=== PATIENT | male | born 1940 | race Caucasian/White ===

== ENCOUNTER 2023-06-28 11:15 | Inpatient (IN) | payer OTHER ==
[~2023-06-28] VITALS: Ht 175.3 cm; Wt 95.3 kg
[2023-06-28 14:58] LABS: URINE APPEARANCE Clear; URINE BILIRRUBIN Negative (NEGATIVE); URINE BLOOD Negative; URINE COLOR Yellow; URINE GLUCOSE Negative (NEGATIVE); URINE LEUKOCYTE Negative; URINE NITRATE Negative; URINE PROTEIN Negative (NEGATIVE); URINE UROBILINOGEN 0.2 E.U./dl
[2023-06-28 15:02] LABS: URINE BACTERIA 13.8 uL (0.0-1933); URINE RBC 2.1 uL (0.0-20.8); URINE WBC 2.1 uL (0.0-23.2)
[2023-06-28 15:06] LABS: URINE EPITHELIAL CELLS 1.3 uL (0.0-38.8)
[2023-06-28 15:24] LABS: PARTIAL THROMBOPLASTIN TIME 30.6 SECONDS (22.0-34.0); PROTHROMBIN TIME 10.5 SECONDS (9.0-11.5)
[2023-06-28 15:27] LABS: ALBUMIN 3.3 gm/dL (3.4-5.0); BILIRUBIN TOTAL 0.33 mg/dL (0.3-1.2); CALCIUM 9.2 mg/dL (8.5-10.1); CREATININE SERUM 1.66 mg/dL (0.70-1.30); GFR 39.66; GLOBULINA 4.4 G/DL (2.4-3.5); POTASSIUM 4.57 mEq/L (3.5-5.1); TOTAL PROTEIN 7.7 gm/dL (6.4-8.2)
[2023-06-28 15:32] LABS: HEMATOCRIT 33.9 % (39.0-48.0); HEMOGLOBIN 10.8 g/dL (13-16.00); MEAN CELL VOLUME 84.6 fL (80.0-100.00); MEAN CORPUSCULAR HGB CONC 31.9 g/dl (32.0-36.0); PLATELET COUNT 374 K/uL (150-450); RED BLOOD COUNT 4.01 M/uL (4.00-6.00)
[2023-06-28 15:37] LABS: RED CELL DISTRIBUTION WIDTH 20.7 % (11.5-14.5)
[2023-06-29] MEDS ORDERED: ZOCOR20 MG PO (08:05)
[2023-06-29] MEDS ORDERED: LOSARTAN-HCTZ1 EACH PO (08:05)
[2023-06-29] MEDS ORDERED: TAMS0.4C PO (08:05)
[2023-06-29] MEDS ORDERED: FERROUS FUMARA324 MG PO (08:06)
[2023-07-03 16:34] LABS: HEMOGLOBIN 10.2 g/dL (13-16.00); MEAN CELL VOLUME 83.6 fL (80.0-100.00); MEAN CORPUSCULAR HEMOGLOBIN 28.3 pg (27.00-32.0); MEAN CORPUSCULAR HGB CONC 33.9 g/dl (32.0-36.0); PLATELET COUNT 244 K/uL (150-450); RED BLOOD COUNT 3.59 M/uL (4.00-6.00); RED CELL DISTRIBUTION WIDTH 19.8 % (11.5-14.5)
[2023-07-04 06:58] LABS: HEMOGLOBIN 10.6 g/dL (13-16.00); MEAN CORPUSCULAR HEMOGLOBIN 27.2 pg (27.00-32.0); PLATELET COUNT 266 K/uL (150-450); RED BLOOD COUNT 3.88 M/uL (4.00-6.00); RED CELL DISTRIBUTION WIDTH 19.2 % (11.5-14.5)
[2023-07-04 07:13] LABS: ALBUMIN 2.9 gm/dL (3.4-5.0); CALCIUM 8.6 mg/dL (8.5-10.1); CREATININE SERUM 1.53 mg/dL (0.70-1.30); GFR 43.58; PHOSPHOROUS 3.7 mg/dL (2.5-4.9); POTASSIUM 4.63 mEq/L (3.5-5.1)
[2023-07-05 19:23] LABS: HEMATOCRIT 32.7 % (39.0-48.0); HEMOGLOBIN 10.7 g/dL (13-16.00); MEAN CELL VOLUME 84.5 fL (80.0-100.00); MEAN CORPUSCULAR HEMOGLOBIN 27.7 pg (27.00-32.0); MEAN CORPUSCULAR HGB CONC 32.8 g/dl (32.0-36.0); PLATELET COUNT 258 K/uL (150-450); RED BLOOD COUNT 3.88 M/uL (4.00-6.00); RED CELL DISTRIBUTION WIDTH 19.5 % (11.5-14.5)
[2023-07-05 19:33] LABS: ABG PH 7.406 (7.35-7.45); ABG PO2 65.6 mmHg (80-100); ABG pCO2 40.3 mmHg (35-45); SaO2 92.7 %
[2023-07-05 19:34] LABS: BASE EXCESS 0.1 mmol/l; BICARBONATE 24.8 mmol/l (23-25); o2 32 %
[2023-07-05 19:35] LABS: allen test SATISFACTORY; puncture site RADIAL RIGHT
[2023-07-05 19:48] LABS: CALCIUM 9.1 mg/dL (8.5-10.1); CREATININE SERUM 2.38 mg/dL (0.70-1.30); GFR 26.17; POTASSIUM 4.6 mEq/L (3.5-5.1)
[2023-07-06 08:23] LABS: CALCIUM 8.7 mg/dL (8.5-10.1); CREATININE SERUM 1.88 mg/dL (0.70-1.30); GFR 34.36; POTASSIUM 4.45 mEq/L (3.5-5.1)
[2023-07-07 08:08] LABS: CALCIUM 8.3 mg/dL (8.5-10.1); CREATININE SERUM 1.46 mg/dL (0.70-1.30); MAGNESIUM 1.9 mg/dL (1.8-2.4); POTASSIUM 3.78 mEq/L (3.5-5.1)
[2023-07-07 09:31] LABS: HEMATOCRIT 27.6 % (39.0-48.0); HEMOGLOBIN 9.3 g/dL (13-16.00); MEAN CELL VOLUME 84.1 fL (80.0-100.00); MEAN CORPUSCULAR HEMOGLOBIN 28.2 pg (27.00-32.0); MEAN CORPUSCULAR HGB CONC 33.6 g/dl (32.0-36.0); PLATELET COUNT 287 K/uL (150-450); RED BLOOD COUNT 3.28 M/uL (4.00-6.00); RED CELL DISTRIBUTION WIDTH 18.4 % (11.5-14.5)
[2023-07-07 17:02] LABS: HEMOGLOBIN 9.2 g/dL (13-16.00); RED BLOOD COUNT 3.27 M/uL (4.00-6.00)
[2023-07-08 00:32] LABS: HEMATOCRIT 27.7 % (39.0-48.0); HEMOGLOBIN 9.1 g/dL (13-16.00); MEAN CELL VOLUME 84.3 fL (80.0-100.00); MEAN CORPUSCULAR HEMOGLOBIN 27.7 pg (27.00-32.0); MEAN CORPUSCULAR HGB CONC 32.9 g/dl (32.0-36.0); PLATELET COUNT 218 K/uL (150-450); RED BLOOD COUNT 3.28 M/uL (4.00-6.00); RED CELL DISTRIBUTION WIDTH 19.1 % (11.5-14.5)
[2023-07-08 08:00] LABS: ALBUMIN 2.1 gm/dL (3.4-5.0); BILIRUBIN TOTAL 0.47 mg/dL (0.3-1.2); CALCIUM 8.3 mg/dL (8.5-10.1); CREATININE SERUM 1.3 mg/dL (0.70-1.30); GFR 52.59; GLOBULINA 3.7 G/DL (2.4-3.5); POTASSIUM 4.04 mEq/L (3.5-5.1); TOTAL PROTEIN 5.8 gm/dL (6.4-8.2)
[2023-07-08 08:04] LABS: HEMATOCRIT 28.3 % (39.0-48.0); HEMOGLOBIN 9.3 g/dL (13-16.00); MEAN CELL VOLUME 86.1 fL (80.0-100.00); MEAN CORPUSCULAR HEMOGLOBIN 28.2 pg (27.00-32.0); MEAN CORPUSCULAR HGB CONC 32.7 g/dl (32.0-36.0); PLATELET COUNT 305 K/uL (150-450); RED BLOOD COUNT 3.29 M/uL (4.00-6.00); RED CELL DISTRIBUTION WIDTH 18.5 % (11.5-14.5)
[2023-07-08 19:32] LABS: CALCIUM 8.7 mg/dL (8.5-10.1); CHOL HDL RATIO 2.9 (0-5.0); CREATININE SERUM 1.36 mg/dL (0.70-1.30); GFR 49.92; POTASSIUM 4.55 mEq/L (3.5-5.1)
[2023-07-09 12:15] LABS: HEMATOCRIT 29.1 % (39.0-48.0); HEMOGLOBIN 9.3 g/dL (13-16.00); MEAN CELL VOLUME 85.2 fL (80.0-100.00); MEAN CORPUSCULAR HEMOGLOBIN 27.4 pg (27.00-32.0); MEAN CORPUSCULAR HGB CONC 32.2 g/dl (32.0-36.0); PLATELET COUNT 361 K/uL (150-450); RED BLOOD COUNT 3.41 M/uL (4.00-6.00); RED CELL DISTRIBUTION WIDTH 18.2 % (11.5-14.5)
[2023-07-09 12:40] LABS: INR 1.06; PARTIAL THROMBOPLASTIN TIME 33.2 SECONDS (22.0-34.0); PROTHROMBIN TIME 11.1 SECONDS (9.0-11.5)
[2023-07-09 12:49] LABS: ALBUMIN 2.1 gm/dL (3.4-5.0); BILIRUBIN TOTAL 0.39 mg/dL (0.3-1.2); BILIRUBIN,CONJUGATED 0.18 mg/dL (0.0-0.2); BILIRUBIN,UNCONJUGATED 0.21 mg/dL (0.0-0.6); CALCIUM 8.6 mg/dL (8.5-10.1); CHOL HDL RATIO 2.9 (0-5.0); CREATININE SERUM 1.48 mg/dL (0.70-1.30); GFR 45.28; GLOBULINA 3.9 G/DL (2.4-3.5); MAGNESIUM 2.3 mg/dL (1.8-2.4); POTASSIUM 3.82 mEq/L (3.5-5.1)
[2023-07-09 13:29] LABS: ABG PH 7.438 (7.35-7.45); ABG pCO2 50.2 mmHg (35-45)
[2023-07-09 13:30] LABS: ABG PO2 51.6 mmHg (80-100); BASE EXCESS 7.5 mmol/l; BICARBONATE 33.1 mmol/l (23-25); SaO2 88.3 %; Tco2 34.7 mmol/l; allen test SATISFACTORY; o2 21 %; puncture site RADIAL RIGHT
[2023-07-11 08:24] LABS: HEMATOCRIT 26.7 % (39.0-48.0); MEAN CELL VOLUME 84.1 fL (80.0-100.00); MEAN CORPUSCULAR HGB CONC 33.1 g/dl (32.0-36.0); PLATELET COUNT 308 K/uL (150-450); RED BLOOD COUNT 3.17 M/uL (4.00-6.00); RED CELL DISTRIBUTION WIDTH 18.1 % (11.5-14.5)
[2023-07-11 08:27] LABS: HEMOGLOBIN 8.8 g/dL (13-16.00); MEAN CORPUSCULAR HEMOGLOBIN 27.7 pg (27.00-32.0)
[2023-07-11 08:35] LABS: CALCIUM 8.3 mg/dL (8.5-10.1); CREATININE SERUM 1.33 mg/dL (0.70-1.30); GFR 51.22; POTASSIUM 3.69 mEq/L (3.5-5.1)
[2023-07-12 08:46] LABS: HEMATOCRIT 26.6 % (39.0-48.0); MEAN CELL VOLUME 85.7 fL (80.0-100.00); PLATELET COUNT 277 K/uL (150-450); RED BLOOD COUNT 3.11 M/uL (4.00-6.00); RED CELL DISTRIBUTION WIDTH 17.4 % (11.5-14.5)
[2023-07-12 08:48] LABS: MEAN CORPUSCULAR HEMOGLOBIN 28.2 pg (27.00-32.0)
[2023-07-12 08:49] LABS: HEMOGLOBIN 8.8 g/dL (13-16.00)
[2023-07-12 09:02] LABS: ALBUMIN 1.9 gm/dL (3.4-5.0); BILIRUBIN TOTAL 0.79 mg/dL (0.3-1.2); CALCIUM 8.1 mg/dL (8.5-10.1); CREATININE SERUM 1.23 mg/dL (0.70-1.30); GFR 56.06; GLOBULINA 3.5 G/DL (2.4-3.5); TOTAL PROTEIN 5.4 gm/dL (6.4-8.2)
[2023-07-12 09:34] LABS: POTASSIUM 2.85 mEq/L (3.5-5.1)
[2023-07-12] MEDS ORDERED: LEVOTHYROXINE75 MCG (13:23)
[2023-07-12] MEDS ORDERED: FERROUS SULFAT325 MG (13:23)
[2023-07-12] MEDS ORDERED: AMLODIPINE BESYL5 MG (13:23)
[2023-07-13 07:35] LABS: CALCIUM 8.1 mg/dL (8.5-10.1); CREATININE SERUM 1.18 mg/dL (0.70-1.30); GFR 58.81; MAGNESIUM 1.6 mg/dL (1.8-2.4)
[2023-07-13 07:48] LABS: HEMATOCRIT 26.5 % (39.0-48.0); MEAN CELL VOLUME 85.6 fL (80.0-100.00); MEAN CORPUSCULAR HGB CONC 32.7 g/dl (32.0-36.0); PLATELET COUNT 259 K/uL (150-450); RED CELL DISTRIBUTION WIDTH 17.4 % (11.5-14.5)
[2023-07-13 07:49] LABS: HEMOGLOBIN 8.7 g/dL (13-16.00)
[2023-07-13 08:07] LABS: PHOSPHOROUS 1.7 mg/dL (2.5-4.9); POTASSIUM 2.89 mEq/L (3.5-5.1)
[2023-07-13 19:00] LABS: ABG PH 7.465 (7.35-7.45); ABG pCO2 50.4 mmHg (35-45)
[2023-07-13 19:01] LABS: ABG PO2 48.4 mmHg (80-100); BASE EXCESS 9.9 mmol/l; BICARBONATE 35.5 mmol/l (23-25); SaO2 87.4 %; allen test SATISFACTORY; o2 21 %; puncture site RADIAL LEFT
[2023-07-14 10:57] LABS: ABG PH 7.471 (7.35-7.45); ABG PO2 75.4 mmHg (80-100); ABG pCO2 49.6 mmHg (35-45); BICARBONATE 35.4 mmol/l (23-25)
[2023-07-14 10:58] LABS: Tco2 36.9 mmol/l; allen test SATISFACTORY; o2 50 %; puncture site RADIAL LEFT
[2023-07-14 10:59] LABS: SaO2 96.3 %
[2023-07-15 13:58] LABS: HEMATOCRIT 27.2 % (39.0-48.0); HEMOGLOBIN 8.9 g/dL (13-16.00); MEAN CELL VOLUME 84.2 fL (80.0-100.00); MEAN CORPUSCULAR HEMOGLOBIN 27.4 pg (27.00-32.0); MEAN CORPUSCULAR HGB CONC 32.7 g/dl (32.0-36.0); PLATELET COUNT 276 K/uL (150-450); RED BLOOD COUNT 3.24 M/uL (4.00-6.00)
[2023-07-15 14:29] LABS: CALCIUM 8.3 mg/dL (8.5-10.1); CREATININE SERUM 1.28 mg/dL (0.70-1.30); GFR 53.54; MAGNESIUM 1.9 mg/dL (1.8-2.4); PHOSPHOROUS 2.3 mg/dL (2.5-4.9); TSH 0.853 uIU/mL (0.358-3.74)
[2023-07-15 15:06] LABS: POTASSIUM 2.91 mEq/L (3.5-5.1)
[2023-07-16 15:22] LABS: HEMATOCRIT 35.3 % (39.0-48.0); HEMOGLOBIN 11.7 g/dL (13-16.00); MEAN CELL VOLUME 85.5 fL (80.0-100.00); MEAN CORPUSCULAR HEMOGLOBIN 28.4 pg (27.00-32.0); MEAN CORPUSCULAR HGB CONC 33.3 g/dl (32.0-36.0); PLATELET COUNT 421 K/uL (150-450); RED BLOOD COUNT 4.13 M/uL (4.00-6.00)
[2023-07-18 09:00] LABS: HEMATOCRIT 35.6 % (39.0-48.0); HEMOGLOBIN 11.8 g/dL (13-16.00); MEAN CELL VOLUME 85.5 fL (80.0-100.00); MEAN CORPUSCULAR HEMOGLOBIN 28.2 pg (27.00-32.0); PLATELET COUNT 554 K/uL (150-450); RED BLOOD COUNT 4.17 M/uL (4.00-6.00); RED CELL DISTRIBUTION WIDTH 16.7 % (11.5-14.5)
[2023-07-18 09:33] LABS: ALBUMIN 2.3 gm/dL (3.4-5.0); BILIRUBIN TOTAL 0.59 mg/dL (0.3-1.2); CREATININE SERUM 1.34 mg/dL (0.70-1.30); GFR 50.78; GLOBULINA 4.3 G/DL (2.4-3.5); POTASSIUM 3.19 mEq/L (3.5-5.1); TOTAL PROTEIN 6.6 gm/dL (6.4-8.2)
[2023-07-18 11:12] LABS: ABG PH 7.493 (7.35-7.45)
[2023-07-18 11:13] LABS: ABG PO2 54.5 mmHg (80-100); ABG pCO2 47.8 mmHg (35-45); BASE EXCESS 10.9 mmol/l; BICARBONATE 35.8 mmol/l (23-25); SaO2 91.5 %; Tco2 37.3 mmol/l; allen test SATISFACTORY; o2 21 %; puncture site RADIAL LEFT
== END 2023-07-20 20:16 | disposition home or self-care (01) | DRG 329 ==
LOC: O/R 07-03 04:30 → SURH 07-03 04:30 → SURG 07-03 11:15 → SURH 07-03 13:25 → SURG 07-03 14:30 → SURH 07-20 20:16
PROVIDERS: Internal Medicine; Internal Medicine Geriatric Medicine; Internal Medicine Pulmonary Disease; Surgery; ADMIT Colon & Rectal Surgery; ATTEND Colon & Rectal Surgery
PROC: 07BB4ZZ Excision of Mesenteric Lymphatic, Percutaneous Endoscopic Approach (ICD-10-PCS; 2023-07-03)
PROC: 07BC4ZZ Excision of Pelvis Lymphatic, Percutaneous Endoscopic Approach (ICD-10-PCS; 2023-07-03)
PROC: 8E0W4CZ Robotic Assisted Procedure of Trunk Region, Percutaneous Endoscopic Approach (ICD-10-PCS; 2023-07-03)
PROC: 0DTF4ZZ Resection of Right Large Intestine, Percutaneous Endoscopic Approach (ICD-10-PCS; principal; 2023-07-03 14:30)
PROC: 4A12X4Z Monitoring of Cardiac Electrical Activity, External Approach (ICD-10-PCS; 2023-07-05)
PROC: 0D9670Z Drainage of Stomach with Drainage Device, Via Natural or Artificial Opening (ICD-10-PCS; 2023-07-06)
PROC: 0DB80ZZ Excision of Small Intestine, Open Approach (ICD-10-PCS; 2023-07-07)
PROC: 0WQF0ZZ Repair Abdominal Wall, Open Approach (ICD-10-PCS; 2023-07-07)
PROC: 0DJW4ZZ Inspection of Peritoneum, Percutaneous Endoscopic Approach (ICD-10-PCS; 2023-07-07)
PROC: 3E1M48Z Irrigation of Peritoneal Cavity using Irrigating Substance, Percutaneous Endoscopic Approach (ICD-10-PCS; 2023-07-07)
PROC: 3E0F7GC Introduction of Other Therapeutic Substance into Respiratory Tract, Via Natural or Artificial Opening (ICD-10-PCS; 2023-07-07)
PROC: 02HV33Z Insertion of Infusion Device into Superior Vena Cava, Percutaneous Approach (ICD-10-PCS; 2023-07-09)
PROC: 3E0436Z Introduction of Nutritional Substance into Central Vein, Percutaneous Approach (ICD-10-PCS; 2023-07-09)
PROC: B246ZZZ Ultrasonography of Right and Left Heart (ICD-10-PCS; 2023-07-10)
PROC: BB24YZZ Computerized Tomography (CT Scan) of Bilateral Lungs using Other Contrast (ICD-10-PCS; 2023-07-15)
PROC: 30233N1 Transfusion of Nonautologous Red Blood Cells into Peripheral Vein, Percutaneous Approach (ICD-10-PCS; 2023-07-15)
DX: C18.2 Malignant neoplasm of ascending colon (principal); I50.33 Acute on chronic diastolic (congestive) heart failure; C18.0 Malignant neoplasm of cecum; K43.0 Incisional hernia with obstruction, without gangrene; I31.39 Other pericardial effusion (noninflammatory); J90 Pleural effusion, not elsewhere classified; N17.9 Acute kidney failure, unspecified; K91.30 Postprocedural intestinal obstruction, unspecified as to partial versus complete; I13.0 Hypertensive heart and chronic kidney disease with heart failure and stage 1 through stage 4 chronic kidney disease, or unspecified chronic kidney disease; K92.1 Melena; K55.8 Other vascular disorders of intestine; N18.9 Chronic kidney disease, unspecified; D64.89 Other specified anemias; D50.8 Other iron deficiency anemias; R59.0 Localized enlarged lymph nodes; I48.0 Paroxysmal atrial fibrillation; I49.9 Cardiac arrhythmia, unspecified; E86.0 Dehydration; R05.9 Cough, unspecified; R09.02 Hypoxemia; E87.6 Hypokalemia
CPT/HCPCS: 44204; 38570; S2900; 49320; 49084

== ENCOUNTER 2023-07-24 22:32 | Emergency (ER) | payer OTHER ==
[~2023-07-24] VITALS: Ht 167.6 cm; Wt 90.7 kg
[~2023-07-24 22:32] MED LIST: AMLODIPINE BESYL5 MG; FERROUS FUMARA324 MG PO; FERROUS SULFAT325 MG; LEVOTHYROXINE75 MCG; LOSARTAN-HCTZ1 EACH PO; TAMS0.4C PO; ZOCOR20 MG PO
[2023-07-25 00:45] LABS: HEMOGLOBIN 10.2 g/dL (13-16.00); MEAN CELL VOLUME 87.7 fL (80.0-100.00); MEAN CORPUSCULAR HEMOGLOBIN 28.8 pg (27.00-32.0); MEAN CORPUSCULAR HGB CONC 32.8 g/dl (32.0-36.0); PLATELET COUNT 331 K/uL (150-450); RED BLOOD COUNT 3.53 M/uL (4.00-6.00); RED CELL DISTRIBUTION WIDTH 17.2 % (11.5-14.5)
[2023-07-25 01:01] LABS: INR 1.07; PARTIAL THROMBOPLASTIN TIME 31.1 SECONDS (22.0-34.0); PROTHROMBIN TIME 11.2 SECONDS (9.0-11.5)
== END 2023-07-25 03:45 ==
LOC: ER 22:32
PROVIDERS: General Practice
DX: R04.0 Epistaxis (principal)